=== PATIENT | male | born 1960 | race Caucasian/White ===

== ENCOUNTER 2024-03-04 23:57 | Emergency (ER) | payer MEDICARE, SELFPAY ==
[2024-03-05 00:06] VITALS: BP 98/54; PULSE 79; RESP 18; TEMP 36.4; O2SAT 98; BMI 32.5
[2024-03-05 00:11] VITALS: BP 105/78; PULSE 70; O2SAT 100
--- NOTE | 2024-03-05 00:28 | ED_ITS ---
Documented by User: ANH Mallory 03/05/24 13:08 HPI - Epistaxis General: Chief complaint: Epistaxis Stated complaint: Blood Nose Time Seen by Provider: 03/05/24 00:12 Source: patient Mode of arrival: ambulatory Limitations: no limitations History of Present Illness: Patient is a 63-year-old male who presents to the emergency department with nosebleed beginning tonight. Patient states he was on the toilet when he started noticing bleeding from both nares. He has a history of this in the past, main concern is that he wears O2. He normally lives in [place] and deals with nosebleeds frequently. States last time he had a clamp placed and was started on tranexamic acid that helped. States that he does not want a Rhino Rocket if he needs 1. He is not on any blood thinners. No trauma, he does note that he blows his nose quite often and is chronically clearing his throat. Bleeding somewhat resolved at this time. No history of hypertension. MD complaint: epistaxis Location: bilateral nostril Onset (ago): hour(s) Duration: now resolved Context: history of previous Associated symptoms: Deny fever(s), headache(s) or vomiting Related Data Allergies Allergy/AdvReac Type Severity Reaction Status Date / Time NSAIDS (Non-Steroidal Allergy ALGY-Rash Verified 03/05/24 00:12 Anti-Inflamma Penicillins Allergy ALGY-Rash Verified 03/05/24 00:12 Sulfa (Sulfonamide Allergy ALGY-Rash Verified 03/05/24 00:12 Antibiotics) sulfamethoxazole Allergy ALGY-Rash Verified 03/05/24 00:12 [From Bactrim] trimethoprim [From Bactrim] Allergy ALGY-Rash Verified 03/05/24 00:12 Review of Systems General: Reports: 10 or more systems reviewed and unremarkable except in HPI and below Const: Denies: fever(s), chills or fatigue Eyes: Denies: change in vision ENMT: Reports: epistaxis; Denies: throat pain, ear or mastoid pain or nasal discharge Card: Denies: chest pain, palpitations, swelling of feet/ankles or lightheadedness Resp: Denies: dyspnea, productive cough or wheezing GI: Denies: abdominal pain, nausea, vomiting, diarrhea or constipation : Denies: flank pain, difficulty urinating, dysuria or urinary frequency Musc: Denies: neck pain, back pain or joint pain Skin/Breast: Denies: rash Neuro: Denies: headache(s), numbness in extremities or weakness in extremities Physical Exam Const: COMMON NORMALS: no acute distress and no limitations GENERAL APPEARANCE: cooperative, comfortable and well developed ORIENTATION/CONSCIOUSNESS: Yes awake HENMT: COMMON NORMALS: normocephalic, atraumatic and hearing grossly normal bilaterally HEAD & SCALP: normocephalic and atraumatic OTHER: Initially on examination there was no bleeding anteriorly or posteriorly. After sitting forward, mild bleeding noted out of the right naris. Still no posterior bleeding. No identifiable source. Eye: COMMON NORMALS: Equal, round and reactive pupils present, EOMs intact bilaterally and conjunctivae normal CONJUNCTIVA: Yes conjunctivae normal PUPIL: Yes Equal, round and reactive pupils present Neck/C-Spine: COMMON NORMALS: full ROM, supple and no JVD Resp: COMMON NORMALS: normal respiratory effort, No retractions, No use of accessory muscles and clear to auscultation bilaterally AUSCULTATION: clear to auscultation bilaterally Cardio: COMMON NORMALS: no JVD, regular rate, regular rhythm, No clicks present (Cardio), No murmurs present (Cardio) and No rub (Cardio) RATE: regular rate RHYTHM: regular rhythm Skin: COMMON NORMALS: no rashes or lesions noted GENERAL SKIN EXAM: no rashes or lesions noted Course Vital Signs: Vital signs: Vital Signs Temperature 97.6 F 03/05/24 00:06 Pulse Rate 88 03/05/24 05:11 Respiratory Rate 18 03/05/24 00:06 Blood Pressure 103/60 03/05/24 05:11 Pulse Oximetry 98 03/05/24 05:11 Oxygen Delivery Me thod Nasal Cannula 03/05/24 00:11 Oxygen Flow Rate 2 03/05/24 00:06 MDM - Epistaxis Medical Decision Making Patient presenting with epistaxis, has had similar episodes in the past. There is no active bleeding on arrival until patient noted to be excessively blowing his nose and this did cause some bleeding, notable out of both naris but mainly the right on examination. Again it was stopped with holding direct pressure, family and patient and stated that in the past they were given TXA was a nose clamp and this helped. Examining patient's posterior oropharynx I do not see any posterior bleeding, and due to it being able to cease with conservative therapies, soaked gauze in TXA and placed these in both naris. Instructed patient to continue holding pressure and tilting head back, as well as other conservative treatments. He is from [place] and being that he is not on a blood thinner, he does need to see his ENT for further evaluation of these nosebleeds. However I do think that he is not doing appropriate outpatient management for the nosebleeds and this is being causing it to continue bleeding since initial epistaxis incidences that were reported. Return precautions were given. Discussed this case with Dr. Ruiz. No radiology studies performed this visit Discharge Plan Discharge Patient Disposition: Home Clinical Impression: Acute anterior epistaxis Condition: Stable Discharge Orders: Discharge ED (Routine); Ordered 03/05/24 Ordered By: Mark Osborne Patient Instructions: Nosebleed (ED) Activity Restrictions/Additional Instructions: See attached patient instructions for further education. Follow-up with ENT back home. Avoid blowing nose excessively or any trauma to your nose. Keep head leaned back and clamp at the upper bridge of your nose with any bleeding. If bleeding does not stop or you are continuing to cough up more blood, return to the emergency department as you may require nasal packing. Coding Level of Care Code ED Skiing Instructor for [employer] Documented by User: Mark Ruiz DO 03/05/24 04:52 HPI - Epistaxis General: Chief complaint: Epistaxis Stated complaint: Blood Nose Time Seen by Provider: 03/05/24 00:12 Related Data Allergies Allergy/AdvReac Type Severity Reaction Status Date / Time NSAIDS (Non-Steroidal Allergy ALGY-Rash Verified 03/05/24 00:12 Anti-Inflamma Penicillins Allergy ALGY-Rash Verified 03/05/24 00:12 Sulfa (Sulfonamide Allergy ALGY-Rash Verified 03/05/24 00:12 Antibiotics) sulfamethoxazole Allergy ALGY-Rash Verified 03/05/24 00:12 [From Bactrim] trimethoprim [From Bactrim] Allergy ALGY-Rash Verified 03/05/24 00:12 Procedures Epistaxis Control Time Out Performed: Yes Nostril: left Nose Prepped With: oxymetazoline Direct Inspection: yes and unable to visualize Clots Removed by: blowing nose Device Inserted: hemostatic balloon Device Size: 5 Patient Tolerated Procedure: well and no complications Course Vital Signs: Vital signs: Vital Signs Temperature 97.6 F 03/05/24 00:06 Pulse Rate 88 03/05/24 05:11 Respiratory Rate 18 03/05/24 00:06 Blood Pressure 103/60 03/05/24 05:11 Pulse Oximetry 98 03/05/24 05:11 Oxygen Delivery Me thod Nasal Cannula 03/05/24 00:11 Oxygen Flow Rate 2 03/05/24 00:06 Discharge Plan Discharge Patient Disposition: Home Clinical Impression: Acute anterior epistaxis Condition: Stable Discharge Orders: Discharge ED (Routine); Ordered 03/05/24 Ordered By: Mark Osborne Patient Instructions: Nosebleed (ED) Activity Restrictions/Additional Instructions: See attached patient instructions for further education. Follow-up with ENT back home. Avoid blowing nose excessively or any trauma to your nose. Keep head leaned back and clamp at the upper bridge of your nose with any bleeding. If bleeding does not stop or you are continuing to cough up more blood, return to the emergency department as you may require nasal packing. Coding Level of Care Code ED Skiing Instructor for Tra [employer]man
[2024-03-05] MEDS: tranexamic acid 1,000 mg/10mL SDV 1000 MG IRRIGATION (00:33)
[2024-03-05] MEDS: oxymetazoline 0.05% Nasal Spray 15 mL 2 SPRAY NOSTRIL-B (02:06)
[2024-03-05 02:11] VITALS: BP 107/61; PULSE 86; O2SAT 96
[2024-03-05 05:11] VITALS: BP 103/60; PULSE 88; O2SAT 98
--- NOTE | 2024-03-05 17:58 | DCPLANNER ---
Referral sent to Dr. Blackmon ENT- Patient's called said she would like these removed before they head home- Patient out of state-
== END 2024-03-05 05:13 | disposition home or self-care (01) ==
PROVIDERS: Emergency Provider Physician Assistant
DX: R04.0 Epistaxis (principal)
CPT/HCPCS: 99283

== ENCOUNTER 2024-06-30 21:05 | Emergency (ER) | payer OTHER, MEDICARE, SELFPAY ==
[2024-06-30 21:08] VITALS: BP 135/79; PULSE 74; RESP 16; TEMP 36.9; O2SAT 98; BMI 32.5
[2024-07-01 01:00] VITALS: PULSE 79; RESP 18; O2SAT 99
--- NOTE | 2024-07-01 02:04 | W.ED.EPISTAX ---
HPI - Epistaxis General: Chief complaint: Epistaxis Stated complaint: Nose Bleed Time Seen by Provider: 07/01/24 00:40 Source: patient Mode of arrival: ambulatory Limitations: no limitations History of Present Illness: Patient is a 64-year-old male with past medical history of end-stage kidney disease on dialysis who presents for epistaxis. Patient seen here in the ED for same issue in the past, requiring nasal packing and ENT follow-up. Patient has been holding pressure all day, states that it has continued to bleed and he feels that it is running down the back of his throat. No anticoagulant use, does take baby aspirin daily. No fever or other concerning symptoms reported at this time. Bleeding noted to be out of the left nostril. MD complaint: epistaxis Location: left nostril Onset (ago): hour(s) Duration: constant Context: history of previous and aspirin use Associated symptoms: Deny fever(s), headache(s) or vomiting Treatment prior to arrival: nose pinching Related Data Previous Rx's ?Medication ?Instructions ?Recorded cephalexin 500 mg capsule 500 mg PO BID 7 days #14 caps 07/01/24 Allergies Allergy/AdvReac Type Severity Reaction Status Date / Time NSAIDS (Non-Steroidal Allergy ALGY-Rash Verified 03/05/24 00:12 Anti-Inflamma Penicillins Allergy ALGY-Rash Verified 03/05/24 00:12 Sulfa (Sulfonamide Allergy ALGY-Rash Verified 03/05/24 00:12 Antibiotics) sulfamethoxazole (From Allergy ALGY-Rash Verified 03/05/24 00:12 Bactrim) trimethoprim (From Bactrim) Allergy ALGY-Rash Verified 03/05/24 00:12 Review of Systems General: Reports: 10 or more systems reviewed and unremarkable except in HPI and below Const: Denies: fever(s), chills or fatigue Eyes: Denies: change in vision ENMT: Reports: epistaxis; Denies: throat pain or ear or mastoid pain Card: Denies: chest pain, palpitations, swelling of feet/ankles or lightheadedness Resp: Denies: dyspnea, productive cough or wheezing GI: Denies: abdominal pain, nausea, vomiting, diarrhea or constipation : Denies: flank pain, difficulty urinating, dysuria or urinary frequency Musc: Denies: neck pain, back pain or joint pain Skin/Breast: Denies: rash Neuro: Denies: headache(s), numbness in extremities or weakness in extremities Physical Exam Const: COMMON NORMALS: no acute distress and no limitations GENERAL APPEARANCE: cooperative, comfortable and well developed ORIENTATION/CONSCIOUSNESS: Yes awake HENMT: COMMON NORMALS: normocephalic, atraumatic and hearing grossly normal bilaterally HEAD & SCALP: normocephalic and atraumatic OTHER: Bleeding out of left naris, evaluation of posterior oropharynx also reveals posterior bleeding Eye: COMMON NORMALS: Equal, round and reactive pupils present, EOMs intact bilaterally and conjunctivae normal CONJUNCTIVA: Yes conjunctivae normal PUPIL: Yes Equal, round and reactive pupils present Neck/C-Spine: COMMON NORMALS: full ROM, supple and no JVD Resp: COMMON NORMALS: normal respiratory effort, No retractions, No use of accessory muscles and clear to auscultation bilaterally AUSCULTATION: clear to auscultation bilaterally Cardio: COMMON NORMALS: no JVD, regular rate, regular rhythm, No clicks present (Cardio), No murmurs present (Cardio) and No rub (Cardio) RATE: regular rate RHYTHM: regular rhythm Extremity: COMMON NORMALS: normal to inspection, full ROM and capillary refill normal Skin: COMMON NORMALS: no rashes or lesions noted GENERAL SKIN EXAM: no rashes or lesions noted Procedures Epistaxis Control Time Out Performed: No Nostril: left Direct Inspection: yes, anterior source identified and posterior source indentified Clots Removed by: blowing nose Cautery Used: none Device Inserted: nasal tampon and hemostatic balloon Patient Tolerated Procedure: well Course Vital Signs: Vital signs: Vital Signs Temperature 98.5 F 06/30/24 21:08 Pulse Rate 74 06/30/24 21:08 Respiratory Rate 16 06/30/24 21:08 Blood Pressure 135/79 06/30/24 21:08 Pulse Oximetry 98 06/30/24 21:08 Oxygen Delivery Me thod Nasal Cannula 06/30/24 21:08 MDM - Epistaxis Medical Decision Making Patient presents for epistaxis, history of previous. End-stage renal disease on dialysis, takes aspirin. Unable to achieve hemostasis with direct pressure and other remedies, Rhino Rocket was placed and he is started on prophylactic cephalexin as he is allergic to Augmentin. The patient follow-up with ENT for removal of the balloon and did give him return precautions of which verbalized understanding. No radiology studies performed this visit Discharge Plan Discharge Patient Disposition: Home Clinical Impression: Epistaxis Condition: Stable Prescriptions: New cephalexin 500 mg capsule 500 mg PO BID 7 Days Qty: 14 0RF Discharge Orders: Discharge ED (Routine); Ordered 07/01/24 Ordered By: Mark Osborne Patient Instructions: Epistaxis - Adult Activity Restrictions/Additional Instructions: Keep the nasal packing and follow-up with ENT for reevaluation. Take cephalexin as infection prophylaxis. Return with any high fever or any other new concerning symptoms. Print Language: Danish Coding Level of Care Code ED Digital Strategist Senior Manager for Tra Beckman
[2024-07-01] MEDS: cephALEXin 500 mg Capsule PO (02:07)
[2024-07-01 02:21] VITALS: PULSE 89; O2SAT 99
--- NOTE | 2024-07-01 07:08 | DCPLANNER ---
faxed referral packet to [facility]
== END 2024-07-01 02:23 | disposition home or self-care (01) ==
PROVIDERS: Emergency Provider Physician Assistant
DX: R04.0 Epistaxis (principal); N18.6 End stage renal disease; Z99.2 Dependence on renal dialysis
CPT/HCPCS: 99283; J9999